=== PATIENT | male | born 1970 | race Caucasian/White ===

== ENCOUNTER → 2017-10-05 | Outpatient (CLI) | payer OTHER ==
--- NOTE | 2017-10-05 08:41 | REP ---
Clinical: Pulmonary nodule. Technique: Axial noncontrast images from the thoracic inlet to the upper abdomen with coronal and sagittal re-formations. Comparison: None. Findings: A 7 mm calcified nodule is identified in the left upper lobe (image 56) along with calcified mediastinal and hilar lymph nodes suggesting sequelae of prior granulomas disease. No acute consolidation, significant nodule or mass lesion is appreciated. No pleural effusion/reaction or pneumothorax. Tracheobronchial tree is patent. Mediastinum demonstrates relatively normal thoracic aorta, heart and pericardium. Surrounding musculoskeletal structures are intact. Limited upper abdomen demonstrates normal bilateral adrenal glands. Impression: 1. Findings compatible with prior granulomas disease. 2. No acute mediastinal or pleuroparenchymal process appreciated. Signed by Pancho Gusman MD 10/05/2017 08:33 A
== END ==
LOC: M RAD 07:12
PROVIDERS: ATTEND Student in an Organized Health Care Education/Training Program
DX: Z77.22 Contact with and (suspected) exposure to environmental tobacco smoke (acute) (chronic) (principal)